=== PATIENT | female | born 1970 | race American Indian/Alaskan Native ===

== ENCOUNTER 2019-11-15 10:11 | Day surgery (SDC) | payer OTHER ==
[~2019-11-15 10:11] MED LIST: SODIUM CHLORIDE 0.9% 1000 ML 1,000 ML IV SCH
--- NOTE | 2019-11-15 11:38 | Anesthesia Consultation ---
Anesthesia Consult and Med Hx Date of service: 11/15/19 - Airway Anesthetic Teeth Evaluation: Good ROM Head & Neck: Adequate Mental/Hyoid Distance: Adequate Mallampati Class: Class II Intubation Access Assessment: Probably Good - Pre-Operative Health Status ASA Pre-Surgery Classification: ASA2 Proposed Anesthetic Plan: MAC - Pulmonary Hx Smoking: No Hx Asthma: No Hx Respiratory Symptoms: No SOB: No COPD: No Home Oxygen Therapy: No Hx Pneumonia: No Hx Sleep Apnea: Yes - Cardiovascular System Hx Hypertension: No Hx Coronary Artery Disease: No Hx Heart Attack/AMI: No Hx Angina: No Hx Percutaneous Transluminal Coronary Angioplasty (PTCA): No Hx Cardia Arrhythmia: No Hx Pacemaker: No Hx Internal Defibrillator: No Hx Valvular Heart Disease: No Hx Heart Murmur: No Hx Peripheral Vascular Disease: No - Central Nervous System Hx Neuromuscular Disorder: No Hx Seizures: No CVA: No Hx Back Pain: Yes (on meds) Hx Psychiatric Problems: Yes (on meds) - Gastrointestinal Hx Ulcer: No Hx Gastroesophageal Reflux Disease: No - Endocrine Hx Renal Disease: No Hx End Stage Renal Disease: No Hx Cirrhosis: No Hx Liver Disease: No Hx Insulin Dependent Diabetes: No Hx Non-Insulin Dependent Diabetes: No Hx Thyroid Disease: No Hx Hypothyroidism: No Hx Hyperthyroidism: No - Hematic Hx Anemia: No Hx Sickle Cell Disease: No - Other Systems Hx Alcohol Use: Yes (occ.) Hx Substance Use: No Hx Cancer: No Hx Obesity: No
--- NOTE | 2019-11-15 11:39 | Anesthesia Day of Surgery ---
Anesthesia Day of Surgery - Day of Surgery Patient Examined: Yes Patient H&P Reviewed: Yes Patient is NPO: Yes
[2019-11-15] MEDS ORDERED: LIDOCAINE MPF (2%) 20 MG/1 ML VIAL 5 ML ONE (12:00)
[2019-11-15] MEDS ORDERED: propofoL 200 MG/20 ML VIAL IV ONE ×3 (13:26→13:58)
--- NOTE | 2019-11-15 14:14 | Procedure Note ---
Date of procedure: 11/15/19 Pre-op diagnosis: Epigastric Pain/ H/O NSAID use/ Colon Polyp Screening Post-op diagnosis: other (Multiple,Clean based,Gastric Antral Ulcers/Gastritis/Moderate,Erosive Esophagitis/Two Small Left colon Polyps (possibly Hyperplastic)/ Minor,Internal Hemorrhoid) Procedure: EGD with Biopsy/ Colonoscopy with Biopsy Anesthesia: [facility] Surgeon: PEDRO RICKETTS Estimated blood loss: minimal Pathology: list Specimen disposition: to lab Condition: stable Disposition: same day (Treat with PPI. Avoid aspirin and NSAID for 5 days; otherwise resume home medication.)
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
[2019-11-15 14:57] VITALS: BP 116/72
--- NOTE | 2019-11-15 14:57 | Post Anesthesia Evaluation ---
- Post Anesthesia Evaluation Patient Participated: Yes Airway Patent: Yes Stable Respiratory Function: Yes Nausea/Vomiting: No Temp > 96.8F: Yes Pain Manageable: Yes Adequeate Hydration: Yes Anesthesia Complications: No
== END 2019-11-15 10:12 | disposition home or self-care (01) ==
LOC: GIO 10:11
DX: R19.4 Change in bowel habit (principal); R10.13 Epigastric pain; K29.70 Gastritis, unspecified, without bleeding; K31.89 Other diseases of stomach and duodenum; K63.5 Polyp of colon; K63.89 Other specified diseases of intestine; K21.0 Gastro-esophageal reflux disease with esophagitis; K64.8 Other hemorrhoids; Z88.2 Allergy status to sulfonamides; Z79.891 Long term (current) use of opiate analgesic; Z72.89 Other problems related to lifestyle
CPT/HCPCS: 82962; 88305; 88342; J2704; J7030

== ENCOUNTER 2020-01-31 09:32 | Day surgery (SDC) | payer OTHER ==
--- NOTE | 2020-01-31 10:00 | Anesthesia Consultation ---
Anesthesia Consult and Med Hx Date of service: 01/31/20 - Airway Anesthetic Teeth Evaluation: Good ROM Head & Neck: Adequate Mental/Hyoid Distance: Adequate Mallampati Class: Class I Intubation Access Assessment: Good - Pulmonary Exam CTA: Yes - Cardiac Exam Cardiac Exam: RRR - Pre-Operative Health Status ASA Pre-Surgery Classification: ASA1 Proposed Anesthetic Plan: MAC - Pulmonary Hx Smoking: No Hx Respiratory Symptoms: No - Cardiovascular System Hx Hypertension: No - Central Nervous System CVA: No - Gastrointestinal Hx Gastroesophageal Reflux Disease: Yes (erosive esophagitis) - Endocrine Hx Renal Disease: No Hx Liver Disease: No Hx Insulin Dependent Diabetes: No Hx Non-Insulin Dependent Diabetes: No Hx Thyroid Disease: No - Other Systems Hx Obesity: Yes (BMI 32)
--- NOTE | 2020-01-31 10:00 | Anesthesia Day of Surgery ---
Anesthesia Day of Surgery - Day of Surgery Patient Examined: Yes Patient H&P Reviewed: Yes Patient is NPO: Yes
[2020-01-31] MEDS ORDERED: SODIUM CHLORIDE 0.9% 1000 ML 1,000 ML ONE (10:19)
[2020-01-31] MEDS ORDERED: propofoL 200 MG/20 ML VIAL IV ONE (10:54)
[2020-01-31] MEDS ORDERED: LIDOCAINE MPF (2%) 20 MG/1 ML VIAL 5 ML ONE (10:59)
--- NOTE | 2020-01-31 11:17 | Procedure Note ---
Date of procedure: 01/31/20 Pre-op diagnosis: Epigastric Pain/ H/o Gastric Ulcer (H/O NSAID use) Post-op diagnosis: other (No Gastric Ulcer now/ Mild to moderate Erosive Esophagitis/ Gastritis/ R/O Eosinophilic Esophagitis) Procedure: EGD with Biopsy Anesthesia: [facility] [place] Surgeon: PEDRO RICKETTS Estimated blood loss: minimal Pathology: list Specimen disposition: to lab Condition: stable Disposition: same day (Treat with PPI and Baclofen. Resume home medication but avoid aspirin and NSAID for 5 days. Follow up in 1 to 2 weeks ([phone]).)
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
[2020-01-31 20:08] VITALS: BP 110/66
== END 2020-01-31 09:33 | disposition home or self-care (01) ==
LOC: GIO 09:32
DX: R10.13 Epigastric pain (principal); R14.0 Abdominal distension (gaseous); K31.89 Other diseases of stomach and duodenum; K21.00 Gastro-esophageal reflux disease with esophagitis, without bleeding; K29.70 Gastritis, unspecified, without bleeding; G47.30 Sleep apnea, unspecified; E66.9 Obesity, unspecified; Z88.2 Allergy status to sulfonamides; Z79.899 Other long term (current) drug therapy; Z98.890 Other specified postprocedural states; Z72.89 Other problems related to lifestyle; Z68.32 Body mass index [BMI] 32.0-32.9, adult
CPT/HCPCS: 43239; 88305; 88342; J2704; J7030